=== PATIENT | female | born 1950 | race Caucasian/White ===

== ENCOUNTER 2017-10-09 07:52 | Emergency (ER) | payer BC, MEDICARE ==
--- NOTE | 2017-10-09 08:36 | ER Document Report ---
ED General - General Chief Complaint: Skin Problem Stated Complaint: ANKLE PAIN Time Seen by Provider: 10/09/17 08:27 Notes: Presents with painful swelling to her left anterior distal stevenson with "ahead" for a couple of days. Worsening. Constant. She has no fever chills. She does not have diabetes. TRAVEL OUTSIDE OF THE [place] IN LAST 30 DAYS: No - Related Data Allergies/Adverse Reactions: metoprolol Allergy (Verified 10/09/17 07:57) ramipril [From Altace] Allergy (Verified 10/09/17 07:57) azithromycin Adverse Reaction (Verified 10/09/17 07:57) Past Medical History - Social History Smoking Status: Current Every Day Smoker Smoking Education Provided: Yes - The patient ED visit today was directly related to their abuse of tobacco. Family History: None Review of Systems - Review of Systems Notes: REVIEW OF SYSTEMS GEN: Denies fever, chills, weight loss ENT: Denies sore throat, nasal discharge, ear pain EYES: Denies blurry vision, eye pain, discharge CV: Denies chest pain, palpitations, edema RESP: Denies cough, shortness of breath, wheezing GI: Denies abdominal pain, nausea, vomiting, diarrhea MSK: Denies joint pain/swelling, edema, SKIN: Tenderness and drainage LYMPH: Denies swollen glands/lymph nodes NEURO: Denies headache, focal weakness or numbness, dizziness PSYCH: Denies depression, suicidal or homicidal ideation PHYSICAL EXAMINATION General: No acute distress, well-nourished Head: Atraumatic, normocephalic ENT: Mouth normal, oropharynx moist, no exudates or tonsillar enlargement Eyes: Conjunctiva normal, pupils equal, lids normal Neck: No JVD, supple, no guarding CVS: Normal rate, regular rhythm, no murmurs Resp: No resp distress, equal and normal breath sounds bilaterally GI: Nondistended, soft, no tenderness to palpation, no rebound or guarding Ext: No deformities, no bilateral edema. Erythema, blanching, tender, with fluctuance about 5 x 5 cm to the anterior right distal stevenson. Ankle range of motion is intact. Back: No CVA or midline TTP Skin: No rash, warm Lymphatic: No lymphadeopathy noted Neuro: Awake, alert. Face symmetric. GCS 15. Physical Exam - Vital signs Vitals: Temp Pulse Resp BP Pulse Ox 97.5 F 75 16 135/69 H 94 10/09/17 08:03 10/09/17 08:03 10/09/17 08:03 10/09/17 08:03 10/09/17 08:03 Course - Re-evaluation Re-evalutation: 10/09/17 08:36 Cellulitis and abscess of the distal anterior stevenson not appearing to involve deep compartments, systemic illness given by normal vital signs, or ankle joint. Will outline, drain loop fashion, prescribe Bactrim Keflex to follow-up with primary care and [facility] in 48 hours. Does not need labs given normal vitals and lack of concern for sepsis or septic joint at this time. I have discussed with the patient there likely diagnosis, aftercare plan, follow-up plans and my usual and customary return precautions. They verbalized understanding of this. - Vital Signs Vital signs: Temp Pulse Resp BP Pulse Ox 97.5 F 75 16 135/69 H 94 10/09/17 08:03 10/09/17 08:03 10/09/17 08:03 10/09/17 08:03 10/09/17 08:03 Procedures - Incision and Drainage Right Lower Leg Time completed: 08:53 Type: Complex Anesthetic type: 1% Lidocaine mL's of anesthetic: 3 Blade size: 11 I&D procedure: Betadine prep applied Incision Method: Incision made by scalpel Amount/type of drainage: 10 cc pus Notes: 2 stab incisions were made over the area of maximal fluctuance. These were connected with blunt dissection. Loculations were broken up. Pus was expressed. Loop drain was placed. Patient was educated on loop drainage. Dressed. Culture not obtained. Discharge - Discharge Clinical Impression: Cellulitis and abscess of foot excluding toe Condition: Good Disposition: HOME, SELF-CARE Instructions: Abscess ([facility]), MRSA Cellulitis ([facility]) Additional Instructions: These apply a heat pack to your abscess twice a day. Please twist the loop like you are driving a car to allow for drainage of blood and pus. When the redness decreases and the pus stops draining, use some scissors to cut the loop and remove it yourself. Please follow-up with your regular doctor in a couple of days. Prescriptions: Cephalexin Monohydrate [Keflex 500 mg Capsule] 500 mg PO Q6H 5 Days capsule Sulfamethoxazole/Trimethoprim [Bactrim Ds Tablet] 1 each PO BID #10 tablet
[2017-10-09 09:11] VITALS: BP 129/70
== END 2017-10-09 09:13 | disposition home or self-care (01) ==
LOC: ER 07:52
PROC: 0H9KXZZ Drainage of Right Lower Leg Skin, External Approach (ICD-10-PCS; principal; 2017-10-09)
DX: L03.115 Cellulitis of right lower limb (principal); F17.200 Nicotine dependence, unspecified, uncomplicated; Z88.3 Allergy status to other anti-infective agents
CPT/HCPCS: 99283